=== PATIENT | female | born 1980 | race Asian ===

== ENCOUNTER 2019-11-06 17:05 | Inpatient (IN) | payer OTHER ==
[~2019-11-06] VITALS: Ht 152.4 cm; Wt 81.6 kg
[2019-11-06] MEDS ORDERED: SODIUM CHLORIDE 0.9% 1,000 ML IV ONE (18:17)
[2019-11-06 18:29] LABS: BASOPHILS % 0.8 % (0.0-2.0); EOSINOPHILS % 2.1 % (0.0-5.0); HEMATOCRIT. 36.4 % (36.0-48.0); HEMOGLOBIN. 12.6 g/dL (12.0-16.0); MEAN CORPUSCULAR HEMOGLOBIN 30.2 pg (28.0-32.0); MEAN CORPUSCULAR VOLUME 87.2 fL (81.0-99.0); MEAN PLATELET VOLUME 8.9 fl (7.4-10.4); NEUTROPHILS % 64.1 % (40.0-76.0); PLATELET 282 x1000/uL (130-400); RED BLOOD CELL COUNT 4.17 mill/uL (4.2-5.4); RED CELL DISTRIBUTION WIDTH 13.7 % (11.6-14.6)
[2019-11-06] MEDS ORDERED: ASPIRIN 81MG TABLET PO ONE (18:30)
[2019-11-06 18:38] LABS: CHLORIDE 99 mEq/L (98-107)
[2019-11-06 18:40] LABS: D-DIMER 0.21 mg/L FEU (<0.50); INR 0.9; PROTHROMBIN TIME 9.9 sec (9.6-11.0)
[2019-11-06 18:41] LABS: HCG SCREEN NEGATIVE
[2019-11-06] MEDS ORDERED: POTASSIUM CHLORIDE 20MEQ TABLET SR PO NR (19:00)
[2019-11-06] MEDS ORDERED: NITROGLYCERIN OINT 1GM/INCH UDPKT TD ONE (19:00)
[2019-11-06] MEDS ORDERED: CLONIDINE 0.1MG TABLET PO ONE (19:45)
[2019-11-06] MEDS ORDERED: ACETAMINOPHEN 325MG TABLET PO PRN (21:45)
[2019-11-06] MEDS ORDERED: LORAZEPAM 2MG/ML CPJ IV PRN (21:45)
[2019-11-06] MEDS ORDERED: HYDRALAZINE 20MG/ML VIAL IV PRN (21:45)
[2019-11-06] MEDS ORDERED: CLONIDINE 0.1MG TABLET PO PRN (21:45)
[2019-11-06] MEDS ORDERED: GUAIFENESIN 200MG/10ML SUGAR FREE UDC PO PRN (21:45)
[2019-11-06] MEDS ORDERED: MAGNESIUM/ALUMINUM HYDROXIDE/SIMETHICONE 30ML UDC PO PRN (21:45)
[2019-11-06] MEDS ORDERED: MORPHINE SULFATE 2 MG/ML CPJ (NOT FOR IM USE) IV PRN (21:45)
[2019-11-06] MEDS ORDERED: ONDANSETRON HCL 4MG/2ML INJ IV PRN (21:45)
[2019-11-06] MEDS ORDERED: DIPHENHYDRAMINE 50MG/ML VIAL IV PRN (21:45)
[2019-11-06] MEDS ORDERED: IPRATROPIUM/ALBUTEROL 0.5-3(2.5)MG/3ML NEB HHN PRN (21:45)
[2019-11-06] MEDS ORDERED: HYDROCODONE/ACETAMINOPHEN 10/325MG TABLET PO PRN (21:45)
[2019-11-06] MEDS ORDERED: DOCUSATE SODIUM 100MG CAPSULE PO PRN (21:45)
[2019-11-06] MEDS: SODIUM CHLORIDE 0.9% INJ 3ML FLUSH IVF SCH (22:23)
[2019-11-07 04:25] LABS: BASOPHILS % 0.7 % (0.0-2.0); EOSINOPHILS % 2.8 % (0.0-5.0); HEMATOCRIT. 35.6 % (36.0-48.0); HEMOGLOBIN. 12.1 g/dL (12.0-16.0); LYMPHOCYTES % 27.7 % (20.0-50.0); MEAN CORPUSCULAR HEMOGLOBIN 29.8 pg (28.0-32.0); MEAN CORPUSCULAR VOLUME 87.6 fL (81.0-99.0); MEAN PLATELET VOLUME 8.8 fl (7.4-10.4); MONOCYTES % 8.9 % (2.0-8.0); NEUTROPHILS % 59.9 % (40.0-76.0); PLATELET 271 x1000/uL (130-400); RED BLOOD CELL COUNT 4.06 mill/uL (4.2-5.4); RED CELL DISTRIBUTION WIDTH 13.7 % (11.6-14.6)
[2019-11-07 04:26] LABS: CHLORIDE 103 mEq/L (98-107)
[2019-11-07] MEDS: SODIUM CHLORIDE 0.9% INJ 3ML FLUSH IVF SCH ×3 (06:09→21:01)
[2019-11-07] MEDS ORDERED: ENOXAPARIN 40MG/0.4ML SYR SUBCUT SCH (09:00)
[2019-11-07 10:00] VITALS: BP 155/94
[2019-11-07 11:26] LABS: T4 FREE 1.19 ng/dL (0.76-1.46)
[2019-11-07 12:00] VITALS: BP 140/90
[2019-11-07] MEDS: INSULIN LISPRO 100 UNITS/ML SUBCUT SCH ×3 (13:10→20:58)
[2019-11-07] MEDS ORDERED: DEXTROSE 50% WATER 50ML SYRINGE IV PRN (13:15)
[2019-11-07] MEDS ORDERED: POLYVINYL ALCOHOL OPHTH DROPS 15ML BOTHEYE PRN (14:00)
[2019-11-07] MEDS: HYDRALAZINE HCL 50MG TABLET PO SCH ×2 (14:28→22:00)
[2019-11-07 16:00] VITALS: BP 136/72
[2019-11-07] MEDS ORDERED: METF-414 PO (16:10)
[2019-11-07] MEDS ORDERED: LISI10TA5 PO (16:10)
[2019-11-07] MEDS ORDERED: AMLO2.5T45 PO (16:11)
[2019-11-07] MEDS: BLOOD SUGAR DIAGNOSTIC STRIP TEST SCH ×2 (17:57→21:01)
[2019-11-07 18:17] LABS: CREATINE KINASE 70 IU/L (26-192)
[2019-11-07 18:18] LABS: CREATINE KINASE MB FRACTION 1.7 ng/mL (0.5-3.6)
[2019-11-07 20:00] VITALS: BP 147/78
[2019-11-08] MEDS ORDERED: ASPIRIN 81MG TABLET PO SCH (09:00)
== END 2019-11-07 23:30 | disposition left against medical advice (07) | DRG 313 ==
LOC: ER 17:05 → EDBEDREQ 20:01 → MICUSO 20:57 → EDBEDREQTM 20:59 → EDBEDREQ 20:59 → 7WST 11-07 09:57
PROVIDERS: ADMIT Internal Medicine; ATTEND Internal Medicine
DX: R07.89 Other chest pain (principal); E87.6 Hypokalemia; I10 Essential (primary) hypertension; E11.9 Type 2 diabetes mellitus without complications; Z53.29 Procedure and treatment not carried out because of patient's decision for other reasons; Z20.828 Contact with and (suspected) exposure to other viral communicable diseases; T46.5X6A Underdosing of other antihypertensive drugs, initial encounter; Y92.89 Other specified places as the place of occurrence of the external cause; Z98.891 History of uterine scar from previous surgery
CPT/HCPCS: 36415; 71045; 71275; 80053; 80061; 82550; 82553; 82962; 83036; 83605; 83880; 84439; 84443; 84484; 84703; 85025; 85379; 93005; 93306; 99291; J0360; J1650; J1815; J7030; U0003-CS